=== PATIENT | male | born 1985 | race Caucasian/White ===

== ENCOUNTER → 2023-11-24 14:23 | Outpatient (BNVA) | payer MEDICAID, SELFPAY | PROVIDERS: Family Provider Nurse Practitioner Family; Visit Provider Nurse Practitioner | DX: R11.0 Nausea (principal); R19.7 Diarrhea, unspecified | CPT/HCPCS: 80053; 84443; 85025; 86003; 86008; 86364 ==

== ENCOUNTER 2024-01-13 22:25 | Emergency (ER) | payer MEDICARE, MEDICAID, SELFPAY ==
[2024-01-13 22:28] VITALS: BP 102/73; PULSE 65; RESP 16; TEMP 36.5; O2SAT 99; BMI 25.8
[2024-01-13 22:39] VITALS: BP 132/67; O2SAT 96
--- NOTE | 2024-01-13 22:43 | ECG_ITS ---
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 Measurements Intervals [place] Rate: 62 P: 61 ME: 174 QRS: 39 QRSD: 114 T: 34 QT: 412 QTc: 421 Interpretive Statements SINUS RHYTHM POSSIBLE LEFT ATRIAL ENLARGEMENT [-0.1mV P-WAVE IN V1/V2] POSSIBLE RIGHT VENTRICULAR CONDUCTION DELAY [RSR (QR) IN V1/V2] POSSIBLE LATERAL MYOCARDIAL INFARCTION , OF INDETERMINATE AGE [30 ms Q WAVE IN I/aVL/V5/V6] No previous ECG available for comparison Electronically Signed On 01-14-2024 15:46:14 CDT by Jose Duval M.D. [id number]
--- NOTE | 2024-01-13 22:44 | ED_ITS ---
HPI - Anxiety 2 General: Chief Complaint: Anxiety Stated Complaint: anxiety Time Seen by Provider: 01/13/24 22:27 Source: patient and other (friends) Mode of arrival: EMS Limitations: no limitations History of Present Illness: Patient is a 38-year-old male who presents to ED today along with two other individuals whom he presumably resides with here for an episode that occurred just prior to arrival. According to one of the individuals, patient was playing video games when he immediately began dry heaving. She states he ran outside to continue dry heaving and when she found him he was lying on the ground. He was reportedly responsive and was able to get up. She states then he became very diaphoretic. Patient states he then began gasping for air and reportedly his whole body locked up . By the time EMS got there episode had pretty much ablated. Friend states he has had almost an identical episode 4 months ago when he became anxious over a verbal altercation. Patient denies ever having chest pain or palpitations. Upon arrival to the emergency department he feels fine and back to normal . PMH is significant for schizophrenia and celiac disease. Onset (ago): hour(s) Severity: moderate Quality: improving Place: home History of similar episodes: Yes Relieving factors: nothing Exacerbating factors: nothing Associated symptoms: Reports diaphoresis (resolved now); Deny chest pain, chills, fever(s), headache(s), malaise, nausea, palpitations, syncope or vomiting Review of Systems 2 Const: Reports: diaphoresis (resolved now); Denies: fever(s), chills, body aches, fatigue or malaise Eyes: Denies: change in vision, blurry vision, photophobia, floaters or seeing flashes ENMT: Denies: throat pain, odynophagia, nasal discharge, nasal congestion or sinus pain Card: Denies: chest pain, palpitations, irregular heart rhythm, lightheadedness, syncope or dyspnea on exertion Resp: Reports: dyspnea (resolved now-reportedly gasping for air ); Denies: productive cough, non-productive cough, wheezing, stridor, pain on inspiration, change in phlegm color, hemoptysis or chest congestion GI: Reports: other (dry heaving-since resolved ); Denies: abdominal pain, nausea, vomiting, heartburn or diarrhea : Denies: difficulty urinating or dysuria Musc: Reports: other (states his arms/legs went dumb and locked up -since resolved ); Denies: neck pain, back pain, extremity pain, extremity swelling or joint pain Skin/Breast: Denies: rash Neuro: Denies: headache(s), numbness in extremities, weakness in extremities, lack of coordination, difficulty walking, dizziness or Slurred speech present Psych: Reports: anxiety PFSH ED 2 PFSH: Social History Smoking and tobacco/nicotine status: former use of tobacco/nicotine Alcohol intake: never Substance/Drug Use: never Physical Exam 2 Const: COMMON NORMALS: no acute distress, average body habitus, patient oriented x3, healthy appearing, alert and well nourished; limitations GENERAL APPEARANCE: cooperative ORIENTATION/CONSCIOUSNESS: Yes awake, Yes oriented to person, Yes oriented to place and Yes oriented to time HENMT: COMMON NORMALS: normocephalic and atraumatic HEAD & SCALP: normal to inspection, normocephalic and atraumatic Eye: GENERAL EYE: appearance normal, both eyes and all related structures and normal light reflex DIRECT OPHTHALMOSCOPY: Yes normal light reflex Neck/C-Spine: COMMON NORMALS: full ROM, no lymphadenopathy, supple and no meningeal signs Chest: COMMONS NORMALS: normal inspection of the chest Resp: COMMON NORMALS: normal respiratory effort and clear to auscultation bilaterally AUSCULTATION: clear to auscultation bilaterally Cardio: COMMON NORMALS: regular rate and regular rhythm RATE: regular rate RHYTHM: regular rhythm GI: COMMON NORMALS: Normal to inspection, nondistended, normoactive bowel sounds present, Soft to palpation, non-tender, No hepatosplenomegaly present and no masses PALPATION: Yes Soft to palpation and Yes No hepatosplenomegaly present : COMMON NORMALS: Yes no CVA tenderness BLADDER/KIDNEY EXAM: Yes no CVA tenderness Back/Pelvis: COMMON NORMALS: no CVA tenderness and thoracic and lumbar spine normal to inspection Extremity: COMMON NORMALS: normal to inspection Neuro: INDIO COMA SCALE: document GCS findings Indio coma scale eye opening: Spontaneous [place] coma scale verbal response: Orientated [place]io coma scale motor response: Obey commands Indio coma scale total score: 15 COMMON NORMALS: patient oriented x3, CN's II-XII intact bilaterally, moves all extremities, no focal motor deficits, no sensory deficits noted and gait normal SENSORIUM/ORIENTATION: Yes alert, Yes oriented to person, Yes oriented to place and Yes oriented to time MENINGEAL SIGNS: Yes no meningeal signs Skin: COMMON NORMALS: no rashes or lesions noted GENERAL SKIN EXAM: no rashes or lesions noted Course 2 Vital Signs: Vital signs: Vital Signs Temperature 97.7 F 01/13/24 22:28 Pulse Rate 65 01/13/24 22:28 Respiratory Rate 16 01/13/24 22:28 Blood Pressure 132/67 01/13/24 22:39 Pulse Oximetry 96 01/13/24 22:39 Oxygen Delivery Me thod Room Air 01/13/24 22:39 MDM - Anxiety Medical Decision Making Patient has been back to baseline and in no acute distress during his entire ED stay. His vital signs have been stable. Workup here including troponin/EKG, CXR, and ABG. These are essentially unremarkable. His chemistry panel did show hypokalemia at 2.9. His mag is normal. His CPK is normal. Patient states he chronically has no related to his celiac disease most likely responsible for the hypokalemia. He was given oral replacement here and will be placed on oral replacement at home over the next 5 days. Recommend this gets rechecked through primary care early next week. Return ED precautions given. Medical Records I reviewed the patient's medical records. Lab Data I reviewed the patient's lab results. 01/13/24 23:09 01/13/24 23:09 Laboratory Results WBC 14.97 10^3/uL (3.29-11.43) H 01/13/24 23:09 RBC 5.12 10^6/uL (3.85-5.65) 01/13/24 23:09 Hgb 15.40 g/dL (11.27-16.99) 01/13/24 23:09 Hct 44.9 % (37-53) 01/13/24 23:09 MCV 87.7 fl (82-101) 01/13/24 23:09 MCH 30.1 pg (27-33) 01/13/24 23:09 MCHC 34.3 g/dL (30-55) 01/13/24 23:09 RDW 13.1 % (12.1-15.1) 01/13/24 23:09 Plt Count 209 10^3/cmm (157-399) 01/13/24 23:09 MPV 11.4 fL (7.4-10.4) H 01/13/24 23:09 Neut % (Auto) 81.0 % 01/13/24 23:09 Lymph % (Auto) 12.3 % 01/13/24 23:09 [place] % (Auto) 4.9 % 01/13/24 23:09 Eos % (Auto) 1.0 % 01/13/24 23:09 Baso % (Auto) 0.4 % 01/13/24 23:09 Neut # (Auto) 12.12 10^3/uL (1.8-7.7) H 01/13/24 23:09 Lymph # (Auto) 1.8 10^3/uL (0.8-4.8) 01/13/24 23:09 [place] # (Auto) 0.7 10^3/uL (0.2-0.9) 01/13/24 23:09 Eos # (Auto) 0.2 10^3/uL (0.0-0.8) 01/13/24 23:09 Baso # (Auto) 0.1 10^3/uL (0.0-0.1) 01/13/24 23:09 Nucleated RBC % (auto) 0 % 01/13/24 23:09 Nucleated RBCs # 0.0 /100WBC 01/13/24 23:09 Specimen Type Arterial 01/13/24 23:30 Sample Site Radial, left 01/13/24 23:30 ABG pH 7.43 (7.35-7.45) 01/13/24 23:30 ABG pCO2 39.1 mmHg (35-45) 01/13/24 23:30 ABG pO2 96.3 mmHg (80.0-100.0) 01/13/24 23:30 ABG PO2/FiO2 Ratio 0 01/13/24 23:30 ABG HCO3 26.0 mmol/L (22-26) 01/13/24 23:30 ABG O2 Saturation 98.6 01/13/24 23:30 ABG Base Excess 1.7 mmol/L (-2.0-2.0) 01/13/24 23:30 Aamir Test Pos 01/13/24 23:30 A-a O2 Gradient 0.6 mmHg (5-10) L 01/13/24 23:30 Hematocrit 46.0 % (42-52) 01/13/24 23:30 Hgb O2 Saturation 96.4 % (95-100) 01/13/24 23:30 Carboxyhemoglobin 1.6 %THgb (0.4-20.1) 01/13/24 23:30 Methemoglobin 0.5 % (0.4-1.5) 01/13/24 23:30 Total Hemoglobin 15.0 g/dL (14-18) 01/13/24 23:30 Sodium 144.0 mmol/L (131-143) H 01/13/24 23:30 Potassium 2.9 mmol/L (3.5-5.0) L 01/13/24 23:30 Glucose 116.0 mg/dL (70-115) H 01/13/24 23:30 Ionized Calcium 1.2 mmol/L (1.1-1.4) 01/13/24 23:30 O2 Delivery Device None 01/13/24 23:30 FiO2 21.0 % 01/13/24 23:30 Technical Healthcare Consultant ID Alewe 01/13/24 23:30 Sodium 141 mmol/L (136-145) 01/13/24 23:09 Potassium 2.9 mmol/L (3.5-5.1) L 01/13/24 23:09 Chloride 104 mmol/L (98-107) 01/13/24 23:09 Carbon Dioxide 26 mmol/L (22-29) 01/13/24 23:09 Anion Gap 13.9 (5-19) 01/13/24 23:09 BUN 14 mg/dL (6-20) 01/13/24 23:09 Creatinine 0.9 mg/dL (0.7-1.2) 01/13/24 23:09 GFR Calculation 95.5 mL/min (90-130) 01/13/24 23:09 Glucose 112 mg/dL (65-115) 01/13/24 23:09 Calculated Osmolality 293 mOsm/kg (285-295) 01/13/24 23:09 Calcium 9.6 mg/dL (8.5-10.5) 01/13/24 23:09 Magnesium 2.1 mg/dL (1.7-2.3) 01/13/24 23:09 Total Bilirubin 0.6 mg/dL (0.15-1.2) 01/13/24 23:09 AST 23 U/L (0-40) 01/13/24 23:09 ALT 18 U/L (0-41) 01/13/24 23:09 Alkaline Phosphatase 75 U/L (40-130) 01/13/24 23:09 Creatine Kinase 205 U/L (39-308) 01/13/24 23:09 Troponin T Baseline < 6 ng/L (0-15) 01/13/24 23:09 Total Protein 7.0 g/dL (6.6-8.7) 01/13/24 23:09 Albumin 4.4 g/dL (3.5-5.2) 01/13/24 23:09 Globulin 2.6 g/dL (1.3-4.6) 01/13/24 23:09 Urine Opiates Screen Negative ng/mL (Negative) 01/13/24 23:31 Ur Barbiturates Screen Negative ng/mL (Negative) 01/13/24 23:31 Ur Phencyclidine Scrn Negative ng/mL (Negative) 01/13/24 23:31 Ur Amphetamines Screen Negative ng/mL (Negative) 01/13/24 23:31 U Benzodiazepines Scrn Negative ng/mL (Negative) 01/13/24 23:31 Urine Cocaine Screen Negative ng/mL (Negative) 01/13/24 23:31 U Marijuana (THC) Screen Positive ng/mL (Negative) H 01/13/24 23:31 XR interpretation done by ED provider, pending radiology final review Discharge Plan Discharge Patient Disposition: Home Clinical Impression: Hyperventilation, Acute hypokalemia Condition: Stable Prescriptions: New potassium chloride 20 mEq tablet extended release 20 meq PO BID Qty: 10 0RF No Action hyoscyamine sulfate 0.125 mg tablet 0.125 mg PO TID PRN (Reason: dyspepsia) Qty: 90 0RF omeprazole 40 mg capsule,delayed release(DR/EC) 40 mg PO DAILY Qty: 90 2RF Discharge Orders: Discharge ED (Routine); Ordered 01/14/24 Ordered By: Franchesca Rodney Referrals: Enid Desai FNP [Primary Care Provider] - Patient Instructions: Hypokalemia (ED) Activity Restrictions/Additional Instructions: As we discussed, please fill your potassium prescription tomorrow and start this. Have your potassium rechecked through your primary care provider next week. 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
--- NOTE | 2024-01-13 23:00 | XRR_ITS ---
PROCEDURE INFORMATION: Exam: XR Chest Exam date and time: 01/13/2024 11:43 PM Age: 38 years old Clinical indication: Other: Syncope; Additional info: Poss syncope TECHNIQUE: Imaging protocol: Radiologic exam of the chest. Views: 1 view. COMPARISON: MR shoulder RT wo con* [id number] 02/18/2018 3:38 PM FINDINGS: Lungs: Unremarkable. No consolidation. Pleural spaces: Unremarkable. No pleural effusion. No pneumothorax. Heart/Mediastinum: Unremarkable. No cardiomegaly. Bones/joints: Unremarkable. XR/XR chest 1V portable [id number] IMPRESSION: No acute findings.
[2024-01-13 23:37] LABS: Basophils # 0.1 10^3/uL (0.0-0.1); Basophils % 0.4 %; Eosinophils # 0.2 10^3/uL (0.0-0.8); Hematocrit 44.9 % (37-53); Lymphocytes # 1.8 10^3/uL (0.8-4.8); Lymphocytes % 12.3 %; Mean Corpuscular HGB Conc 34.3 g/dL (30-55); Mean Corpuscular Hemoglobin 30.1 pg (27-33); Mean Corpuscular Volume 87.7 fl (82-101); Mean Platelet Volume 11.4 fL (7.4-10.4); Monocytes # 0.7 10^3/uL (0.2-0.9); Monocytes % 4.9 %; Neutrophils # 12.12 10^3/uL (1.8-7.7); Nucleated Red Blood Cells % 0 %; Platelet Count 209 10^3/cmm (157-399); Red Blood Count 5.12 10^6/uL (3.85-5.65); Red Cell Distribution Width 13.1 % (12.1-15.1); White Blood Count 14.97 10^3/uL (3.29-11.43)
[2024-01-13 23:38] LABS: ABG PCO2 39.1 mmHg (35-45); ABG PH Result 7.43 (7.35-7.45); Alveolar-Arterial Oxygen Gradi 0.6 mmHg (5-10); Base Excess ABG 1.7 mmol/L (-2.0-2.0); Blood Gas Allen Test Pos; Blood Gas Sample Site Radial, left; Blood Gas Sample Type Arterial; Carboxyhemoglobin 1.6 %THgb (0.4-20.1); HGB O2 Sat 96.4 % (95-100); Ionized Calcium Level - ABG 1.2 mmol/L (1.1-1.4); Methemoglobin 0.5 % (0.4-1.5); Oxygen Saturation ABG 98.6; PO2 ABG 96.3 mmHg (80.0-100.0); PO2 FiO2 Ratio Arterial Blood 0; Potassium Level - ABG 2.9 mmol/L (3.5-5.0)
[2024-01-13 23:53] LABS: Alanine Aminotransferase 18 U/L (0-41); Albumin Level 4.4 g/dL (3.5-5.2); Alkaline Phosphatase 75 U/L (40-130); Anion Gap 13.9 (5-19); Aspartate Amino Transferase 23 U/L (0-40); Blood Urea Nitrogen 14 mg/dL (6-20); Calcium 9.6 mg/dL (8.5-10.5); Carbon Dioxide 26 mmol/L (22-29); Chloride 104 mmol/L (98-107); Creatine Phosphokinase 205 U/L (39-308); Creatinine Clr Calc Pharmacy 119.0408; Globulin 2.6 g/dL (1.3-4.6); Glomerular Filtration Rate 95.5 mL/min (90-130); Glucose 112 mg/dL (65-115); Osmolality Calculated 293 mOsm/kg (285-295); Sodium 141 mmol/L (136-145); Total Bilirubin 0.6 mg/dL (0.15-1.2)
[2024-01-13 23:54] LABS: Troponin(5th) Baseline < 6 ng/L (0-15)
[2024-01-14 00:02] LABS: Potassium 2.9 mmol/L (3.5-5.1)
[2024-01-14 00:09] LABS: Magnesium 2.1 mg/dL (1.7-2.3)
[2024-01-14 00:11] LABS: Amphetamines Screen Urine Negative (Negative); Barbiturates Screen Urine Negative (Negative); Benzodiazepines Screen Urine Negative (Negative); Cocaine Screen Urine Negative (Negative); Opiate Screen Urine Negative (Negative); PCP Screen Urine Negative (Negative); THC Screen Urine Positive (Negative)
[2024-01-14] MEDS: potassium chloride ER 20 mEq Tablet 60 MEQ PO (00:18)
== END 2024-01-14 00:56 | disposition home or self-care (01) ==
PROVIDERS: Emergency Provider Physician Assistant; PCP Nurse Practitioner
DX: R06.4 Hyperventilation (principal); E87.6 Hypokalemia; Z87.891 Personal history of nicotine dependence
CPT/HCPCS: 36415; 36600; 71045; 80051; 80053; 80306; 82330; 82550; 82805; 83735; 84484; 85025; 93005; 99285

== ENCOUNTER → 2024-01-19 10:43 | Outpatient (BNVA) | payer MEDICARE, MEDICAID, SELFPAY | PROVIDERS: PCP Nurse Practitioner; Visit Provider Nurse Practitioner | DX: E87.6 Hypokalemia (principal) | CPT/HCPCS: 80053 ==

== ENCOUNTER → 2024-03-21 15:59 | Outpatient (BNVA) | payer MEDICARE, MEDICAID, SELFPAY | PROVIDERS: PCP Nurse Practitioner; Visit Provider Nurse Practitioner | DX: E87.6 Hypokalemia (principal) | CPT/HCPCS: 84132 ==

== ENCOUNTER 2024-12-07 18:52 | Emergency (ER) | payer MEDICARE, MEDICAID, SELFPAY ==
[2024-12-07 18:56] VITALS: BP 114/74; PULSE 73; RESP 17; TEMP 36.6; O2SAT 100; BMI 23.7
--- NOTE | 2024-12-07 20:26 | XRR_ITS ---
PROCEDURE INFORMATION: Exam: XR Left Foot Exam date and time: 12/07/2024 8:36 PM Age: 39 years old Clinical indication: Injury or trauma; Other: Dog bite; Bleeding/hemorrhage; Foot; Left; Additional info: Trauma, dog bite TECHNIQUE: Imaging protocol: Radiologic exam of the left foot. Views: 3 or more views. COMPARISON: No relevant prior studies available. FINDINGS: Bones/joints: Normal. Soft tissues: Normal. XR/XR foot LT min 3V* [id number] IMPRESSION: No acute findings.
--- NOTE | 2024-12-07 20:28 | W.ED.ANIMALB ---
HPI - Animal Bite General: Chief Complaint: Animal Bite Stated Complaint: Left foot dog bite Time Seen by Provider: 12/07/24 20:16 Source: patient Mode of arrival: ambulatory Limitations: no limitations History of Present Illness: 39yo male presents with family for evaluation of a dog bite to the left foot that occurred when he was at his neighbor's house. States it is his neighbors dog. Reports he was borrowing a vacuum machine heddle cleaner and the dog was fine until he was going to take the vacuum machine heddle cleaner out of the house, then the dog bit through his boot into his foot. Unsure of dog's rabies status. Family reports patient had a tetanus 3 years ago. Patient denies any other injury or concern at this time. Associated symptoms: Deny chills or fever(s) Related Data Previous Rx's ?Medication ?Instructions ?Recorded omeprazole 40 mg capsule,delayed 40 mg PO DAILY #90 caps 12/22/23 release potassium chloride 20 mEq 20 meq PO BID #60 tabs 01/19/24 tablet,extended release hyoscyamine sulfate 0.125 mg tablet 0.125 mg PO TID PRN dyspepsia #90 08/16/24 tabs amoxicillin 875 mg-potassium 1 tab PO BID #14 tabs 12/07/24 clavulanate 125 mg tablet ketorolac 10 mg tablet 10 mg PO Q6H PRN pain 5 days #20 12/07/24 tabs Allergies Allergy/AdvReac Type Severity Reaction Status Date / Time No Known Allergies Allergy Verified 12/07/24 18:59 Review of Systems Const: Denies: fever(s) or chills Musc: Reports: extremity pain (Left foot) [facility] PFSH: Social History Smoking and tobacco/nicotine status: current every day tobacco/nicotine user cigars Cigar details: 12 daily Alcohol intake: never Substance/Drug Use: never Physical Exam Const: COMMON NORMALS: no acute distress, patient oriented x3, healthy appearing and alert GENERAL APPEARANCE: cooperative ORIENTATION/CONSCIOUSNESS: Yes awake OTHER: Patient is sitting upright on stretcher no acute distress. He is able to give history with no difficulty. He is interactive with exam appropriately. Family is at bedside HENMT: COMMON NORMALS: normocephalic HEAD & SCALP: normocephalic Chest: CHEST: Yes Symmetrical chest wall rise Resp: COMMON NORMALS: normal respiratory effort EFFORT & INSPECTION: Yes able to speak in complete sentences Extremity: LEFT LOWER EXTREMITY: Yes foot & digits (2 puncture wounds noted at the third MTP and between 4th and 5th MTP. Blee) Neuro: COMMON NORMALS: patient oriented x3 SENSORIUM/ORIENTATION: Yes alert Psych: COMMON NORMALS: cooperative Skin: TRAUMA: puncture (Left foot x 2) Course Vital Signs: Vital signs: Vital Signs Temperature 98 F 12/07/24 18:56 Pulse Rate 73 12/07/24 18:56 Respiratory Rate 17 12/07/24 18:56 Blood Pressure 114/74 12/07/24 18:56 Pulse Oximetry 100 12/07/24 18:56 Oxygen Delivery Me thod Room Air 12/07/24 18:56 MDM - Animal Bite Medical Decision Making 39yo male presents with family for evaluation of a dog bite to the left foot that occurred when he was at his neighbor's house. States it is his neighbors dog. Reports he was borrowing a vacuum machine heddle cleaner and the dog was fine until he was going to take the vacuum machine heddle cleaner out of the house, then the dog bit through his boot into his foot. Unsure of dog's rabies status. Family reports patient had a tetanus 3 years ago. Patient denies any other injury or concern at this time. Patient is nontoxic in appearance. Vital signs are stable. X-ray reveals no acute bony abnormality noted. Discussed findings with patient and family. Patient and family feel that the dog can be monitored by its patient care coordinator for the next 10 days and will defer rabies prophylaxis at this time. Patient did receive Augmentin in the emergency department. Prescription of Augmentin and ketorolac were sent to patient's pharmacy. Discussed importance of continuing to monitor closely for signs of infection. Recommend he follow-up with primary care, call in 1 to 2 days with an update of symptoms and to discuss a recheck. Return precautions provided. Patient and family state understanding and have no further questions or concerns at this time. Lab Data Radiology Impressions Foot X-Ray 12/07/24 20:26 IMPRESSION: No acute findings. All radiology interpretation(s) finalized by discharge Discharge Plan Discharge Patient Disposition: Home Clinical Impression: Dog bite Qualifiers: Encounter type: initial encounter Qualified Code(s): W54.0XXA - Bitten by dog, initial encounter Condition: Stable Prescriptions: New amoxicillin-pot clavulanate 875-125 mg tablet 1 tab PO BID Qty: 14 0RF ketorolac 10 mg tablet 10 mg PO Q6H PRN (Reason: pain) 5 Days Qty: 20 0RF No Action hyoscyamine sulfate 0.125 mg tablet 0.125 mg PO TID PRN (Reason: dyspepsia) Qty: 90 0RF potassium chloride 20 mEq tablet extended release 20 meq PO BID Qty: 60 0RF omeprazole 40 mg capsule,delayed release(DR/EC) 40 mg PO DAILY Qty: 90 2RF Discharge Orders: Discharge ED (Routine); Ordered 12/07/24 Ordered By: Tom Braxton Referrals: Enid Desai FNP [Primary Care Provider] - Discharge Diet: Usual diet Discharge Activity: Increase activity as tolerated Patient Instructions: Animal Bite (ED) Activity Restrictions/Additional Instructions: No bony abnormality noted on the x-ray from the dog bite, pending radiology review Augmentin has been sent to the pharmacy to cover infection from the bite. 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
[2024-12-07] MEDS: amoxicillin-clav 875-125 mg Tablet 1 TAB PO (20:33)
== END 2024-12-07 21:28 | disposition home or self-care (01) ==
PROVIDERS: Emergency Provider Nurse Practitioner; PCP Nurse Practitioner
DX: S91.352A Open bite, left foot, initial encounter (principal); W54.0XXA Bitten by dog, initial encounter; F17.290 Nicotine dependence, other tobacco product, uncomplicated
CPT/HCPCS: 73630; 99283; J9999